=== PATIENT | male | born 1985 | race Caucasian/White ===

== ENCOUNTER 2018-10-24 09:33 | Emergency (ER) | payer BC ==
[2018-10-24 09:51] VITALS: BP 192/115
[2018-10-24] MEDS ORDERED: PROP10TA58 PO (09:55)
[2018-10-24] MEDS ORDERED: LISI-374 PO (09:55)
--- NOTE | 2018-10-24 10:01 | ER Report ---
History and Physical Time Seen By MD: 09:57 Hx. of Stated Complaint: ELEVATED BLOOD PRESSURE HPI/ROS Known HTN on meds. States he takes meds as directed. Drank coffee this morning, didn't eat, felt nauseous, and went to Urgent care thinking he was hypoglycemic. Also states his symptoms caused him to panic. He took propanolol at that time. Now says he feels improved. Denies chest pain. No other complaints. Allergies: Coded Allergies: No Known Drug Allergies (Unverified , 10/24/18) Home Meds Reported Medications Propranolol Hcl (PROPRANOLOL HCL) 10 Mg Tablet, 10 MG PO PRN PRN for ANXIETY 10/24/18 Lisinopril (LISINOPRIL) 40 Mg Tablet, 40 MG PO QDAY, TAB 10/24/18 Reviewed Nurses Notes: Yes Old Medical Records Reviewed: Yes Hx Smoking: Yes Hx Alcohol Use: Yes Constitutional Vital Sign - Last 24 Hours 10/24/18 09:51 Temp 97.7 Pulse 63 Resp 12 B/P (MAP) 192/115 Pulse Ox 98 O2 Delivery Room Air Physical Exam General Appearance: The patient is alert, has no immediate need for airway protection and no current signs of toxicity. Eyes: Pupils equal and round no injection. Respiratory: Chest is non tender, lungs are clear to auscultation. Cardiac: regular rate and rhythm Gastrointestinal: Abdomen is soft and non tender, no masses, bowel sounds normal. Skin: No rashes or lesions. DIFFERENTIAL DIAGNOSIS: After history and physical exam differential diagnosis was considered for drug use, primary/secondary HTN Medical Decision Making Data Points Laboratory Toxicology Test 10/24/18 10:25 Urine Opiates Screen Negative Urine Barbiturates Screen Negative Ur Tricyclic Antidepressants Screen Negative Urine Phencyclidine Screen Negative Urine Amphetamines Screen Negative Urine Benzodiazepines Screen Negative Urine Cocaine Screen Negative Urine Cannabinoids Screen Positive Urinalysis Test 10/24/18 10:25 Urine Color Yellow Urine Clarity Clear Urine pH 7.0 pH (4.8-9.5) Urine Specific [place] 1.006 Urine Protein Negative mg/dL (NEGATIVE) Urine Glucose (UA) Negative mg/dL (NEGATIVE) Urine Ketones Negative mg/dL (NEGATIVE) Urine Blood Negative (NEGATIVE) Urine Nitrite Negative (NEGATIVE) Urine Bilirubin Negative (NEGATIVE) Urine Urobilinogen Negative mg/dL (0.2-1.9) Urine Leukocyte Esterase Negative (NEGATIVE) Urine RBC None /HPF (0-2/HPF) Urine WBC <1 /HPF (0-5/HPF) Urine Squamous Epithelial Cells None /LPF (</=FEW) Urine Bacteria Negative /HPF (NONE-FEW) Urine Mucus None /HPF (NONE-FEW) ED Course/Re-evaluation ED Course Normal EKG and no protein in urine. BP improved with meds. Already has PCM who follows him. No chest pain or SOB. WIll d/c with PCM follow up. Decision to Disposition Date: Oct 24, 2018 Decision to Disposition Time: 11:32 Depart Departure Latest Vital Signs Vital Signs Date Time Temp Pulse Resp B/P (MAP) Pulse Ox O2 Delivery O2 Flow Rate FiO2 10/24/18 09:51 97.7 63 12 192/115 98 Room Air Impression: Primary Impression: HTN (hypertension) Condition: Improved Disposition: HOME OR SELF-CARE Patient Instructions: Hypertension (ED) Problem Qualifiers Primary Impression: HTN (hypertension) Hypertension type: unspecified Qualified Codes: I10 - Essential (primary) hypertension ROCCO BARNETT MD Oct 24, 2018 10:01
--- NOTE | 2018-10-24 10:23 | EKG ---
FACILITY: [facility] [place] PATIENT NAME: GEORGE SAINI : [id number] MR: [id number] V: [id number] EXAM DATE: ORDERING PHYSICIAN: ROCCO BARNETT TECHNOLOGIST: MORRIS Ladd Reason : Blood Pressure : / mmHG Vent. Rate : 060 BPM Atrial Rate : 060 BPM P-R Int : 148 ms QRS Dur : 096 ms QT Int : 382 ms P-R-T Axes : 054 078 045 degrees QTc Int : 382 ms Normal sinus rhythm Normal ECG Confirmed by Jesse Hidalgo ([id number]) on 10/24/2018 11:38:59 AM Referred By: ERICKA Confirmed By:Jesse Coronado
--- NOTE | 2018-10-24 11:49 | EKG ---
FACILITY: [facility] PATIENT NAME: GEORGE SAINI : [id number] MR: [id number] V: [id number] EXAM DATE: ORDERING PHYSICIAN: ROCCO BARNETT TECHNOLOGIST: MORRIS Ladd Reason : REPEAT Blood Pressure : / mmHG Vent. Rate : 057 BPM Atrial Rate : 057 BPM P-R Int : 148 ms QRS Dur : 094 ms QT Int : 404 ms P-R-T Axes : 060 077 050 degrees QTc Int : 393 ms Sinus bradycardia Otherwise normal ECG When compared with ECG of 24-OCT-2018 09:56, No significant change was found Confirmed by Jesse Hidalgo ([id number]) on 10/25/2018 7:13:06 AM Referred By: ERICKA Confirmed By:Jesse Coronado
== END 2018-10-24 11:49 | disposition home or self-care (01) ==
LOC: ER 10:20
DX: I10 Essential (primary) hypertension (principal); Z79.899 Other long term (current) drug therapy
CPT/HCPCS: 80305; 81001; 93005; 99283